=== PATIENT | male | born 1995 | race African-American/Black ===

== ENCOUNTER 2023-09-23 12:46 | Inpatient (IN) | payer OTHER ==
[~2023-09-23] VITALS: Ht 177.8 cm; Wt 109.1 kg
[~2023-09-23 12:46] MED LIST: ARIP20TA21 PO; CHOL500013 PO; FOLI-130 PO; HYDR500 PO; PREG75 PO; PSEU-221 PO; VORT20TA PO
[2023-09-23 15:25] LABS: BASOPHILS % (AUTO) 0.9 % (0.0-2.0); EOSINOPHILS % (AUTO) 0.8 % (1.0-6.0); HEMOGLOBIN 10.6 g/dL (13.5-17.5); LYMPHOCYTES # (AUTO) 2.7 K/uL (1.0-4.8); LYMPHOCYTES % (AUTO) 34.3 % (22.0-44.0); MEAN CORPUSCULAR HGB CONC 34.2 G/dL (31.0-37.0); MEAN CORPUSCULAR VOLUME 111 fL (80-100); MONOCYTES # (AUTO) 0.6 K/uL (0.1-1.0); NEUTROPHILS # (AUTO) 4.5 K/uL (1.8-7.7); PLATELET COUNT (AUTO) 466 K/uL (150-450); RED CELL DISTRIBUTION WIDTH 16.8 % (11.5-14.5); RETICULOCYTE % (AUTO) 4.3 % (0.5-2.3); WHITE BLOOD COUNT (AUTO) 7.9 K/uL (4.5-11.0)
[2023-09-23 15:28] LABS: APPEARANCE,URINE CLEAR (CLEAR); BILIRUBIN,URINE NEGATIVE (NEGATIVE); COLOR,URINE COLORLESS (YELLOW); GLUCOSE, URINE (UA) NEGATIVE (NEGATIVE); KETONES,URINE NEGATIVE (NEGATIVE); LEUKOCYTE ESTERASE ,URINE NEGATIVE (NEGATIVE); NITRATE,URINE NEGATIVE (NEGATIVE); OCCULT BLOOD,URINE NEGATIVE (NEGATIVE); PH,URINE 6.5 (5.0-8.0); PROTEIN,URINE NEGATIVE (NEGATIVE); SPECIFIC GRAVITIY, URINE 1.012 (1.003-1.030); UROBILINOGEN,URINE <=1.0 mg/dL (<=1.0)
[2023-09-23] MEDS ORDERED: ONDANSETRON HCL 4 MG/2 ML VIAL IVP PRN (15:30)
[2023-09-23] MEDS ORDERED: ACETAMINOPHEN 325 MG TABLET PO PRN (15:30)
[2023-09-23 15:33] LABS: ANION GAP 6 mmol/L (8-16); CALCIUM, TOTAL 9.1 mg/dL (8.8-10.5); CARBON DIOXIDE 29 mmol/L (22-29); CHLORIDE 106 mmol/L (98-107); CREATININE 0.77 mg/dL (0.60-1.30); GLOMERULAR FILTR. RATE CALC > 60 mL/min (>60); GLUCOSE,RANDOM 76 mg/dL (70-110); POTASSIUM 3.7 mmol/L (3.5-5.1); SODIUM SERUM 141 mmol/L (136-145); UREA NITROGEN, BLOOD 10 mg/dL (7-18)
[2023-09-23 15:39] LABS: ALANINE AMINOTRANSFERASE 33 U/L (12-78); ALBUMIN 3.8 g/dL (3.4-5.0); ALKALINE PHOSPHATASE 54 U/L (46-116); ASPARTATE AMINOTRANSFERASE 41 U/L (15-37); BILIRUBIN,TOTAL 0.9 mg/dL (0.1-1.0); TOTAL PROTEIN, SERUM 7.7 g/dL (6.4-8.2)
[2023-09-23] MEDS: HEPARIN SODIUM,PORCINE 5,000 UNITS/ML VIAL SQ SCH (16:40)
[2023-09-23] MEDS: HYDROmorphone HCL 2 MG/ML SYRINGE IVP ONE (16:46)
[2023-09-23] MEDS: ONDANSETRON HCL 4 MG/2 ML VIAL IVP ONE (16:46)
[2023-09-23] MEDS: SODIUM CHLORIDE 0.9% 2,000 ML IV ONE (16:48)
[2023-09-23 17:48] VITALS: BP 128/74; PULSE 72; RESP 18; TEMP 98.2
[2023-09-23] MEDS: MORPHINE SULFATE 2 MG/ML SYRINGE IVP PRN (18:21)
[2023-09-23 19:26] VITALS: BP 116/72; PULSE 62; RESP 20; TEMP 97.7
[2023-09-23] MEDS: SODIUM CHLORIDE 0.9% 1,000 ML IV SCH (20:22)
[2023-09-23] MEDS: DOCUSATE SODIUM 100 MG CAPSULE PO SCH (20:22)
[2023-09-23] MEDS: OxyCODONE HCL/ACETAMINOPHEN 5-325 MG TABLET PO PRN (20:22)
[2023-09-24 04:05] VITALS: BP 107/49; PULSE 55; RESP 20; TEMP 97.4
[2023-09-24] MEDS: FAMOTIDINE 20 MG TABLET PO SCH (07:56)
[2023-09-24] MEDS: FOLIC ACID 1 MG TABLET PO SCH (07:56)
[2023-09-24 08:12] VITALS: BP 96/43; PULSE 60; RESP 18; TEMP 97.5
[2023-09-24 11:51] VITALS: BP 107/62; PULSE 66; RESP 16; TEMP 98.6
[2023-09-24] MEDS: HYDROmorphone HCL 2 MG/ML SYRINGE IVP PRN ×2 (12:17→16:21)
[2023-09-24 19:42] VITALS: BP 110/51; PULSE 57; RESP 18; TEMP 97.5
[2023-09-25] VITALS (8 sets, daily range): BP systolic 106–121; BP diastolic 53–89; PULSE 48–111; RESP 17–19; TEMP 97.6–98.4
[2023-09-25] MEDS: HYDROmorphone HCL 2 MG TABLET PO PRN (13:16)
[2023-09-25] MEDS: HEPARIN SODIUM,PORCINE 100 UNITS/ML 5 ML VIAL IVP ONE (16:45)
[2023-09-25] MEDS: HYDROmorphone HCL 2 MG/ML SYRINGE IVP PRN (18:50)
[2023-09-26 04:13] VITALS: BP 110/73; PULSE 57; RESP 17; TEMP 98.4
[2023-09-26 08:07] VITALS: BP 97/48; PULSE 68; RESP 19; TEMP 98.1
[2023-09-26 08:08] VITALS: BP 120/68; PULSE 62; RESP 20; TEMP 97.8
[2023-09-26] MEDS: HYDROmorphone HCL 2 MG/ML SYRINGE IVP PRN (11:45)
[2023-09-26] MEDS: SODIUM CHLORIDE 0.9% 1,000 ML IV SCH (11:47)
[2023-09-26 15:53] VITALS: BP 117/63; PULSE 61; RESP 19
[2023-09-26 19:43] VITALS: BP 108/60; PULSE 60; RESP 18; TEMP 98.1
[2023-09-27 08:02] VITALS: BP 111/64; PULSE 61; RESP 18; TEMP 97.7
[2023-09-27 12:08] VITALS: BP 114/63; PULSE 68; RESP 18; TEMP 97.8
[2023-09-27 15:13] VITALS: BP 117/66; PULSE 68; RESP 18; TEMP 98.1
[2023-09-27] MEDS: HYDROmorphone HCL 2 MG/ML SYRINGE IVP PRN (15:17)
[2023-09-27 20:00] VITALS: BP 97/59; PULSE 60; RESP 18; TEMP 98.3
[2023-09-27 21:29] VITALS: BP 122/79; RESP 18
[2023-09-27] MEDS: ZOLPIDEM TARTRATE 5 MG TABLET PO PRN (22:15)
[2023-09-28] VITALS (8 sets, daily range): BP systolic 111–127; BP diastolic 47–77; PULSE 55–62; RESP 18–20; TEMP 97.6–98.5
[2023-09-28] MEDS: PREGABALIN 75 MG CAPSULE PO SCH (16:00)
[2023-09-28] MEDS: HYDROXYUREA 500 MG CAPSULE PO SCH (20:16)
[2023-09-28] MEDS: PSEUDOEPHEDRINE HCL 60 MG TABLET PO SCH (20:16)
[2023-09-29 03:58] VITALS: BP 108/74; PULSE 53; RESP 17; TEMP 98.3
[2023-09-29 07:23] VITALS: BP 122/78; PULSE 53; RESP 17; TEMP 97.5
[2023-09-29] MEDS: ARIPiprazole 10 MG TABLET PO SCH (07:56)
[2023-09-29] MEDS: CHOLECALCIFEROL (VIT D3) 5,000 [125 MCG] UNITS CAPSULE PO SCH (07:57)
[2023-09-29] MEDS ORDERED: [UNRECOGNIZED DRUG - OTHER] PO SCH (09:00)
[2023-09-29 16:27] VITALS: BP 122/47; PULSE 46; RESP 18; TEMP 98.3
[2023-09-29 17:02] VITALS: BP 112/56; PULSE 58; RESP 20
[2023-09-29 19:52] VITALS: BP 113/45; PULSE 56; RESP 20; TEMP 98.1
[2023-09-29 23:21] VITALS: BP 118/52; PULSE 58; RESP 18; TEMP 98.1
[2023-09-30 03:43] VITALS: BP 117/67; PULSE 60; RESP 18; TEMP 97.1
[2023-09-30 08:23] VITALS: BP 109/73; PULSE 68; RESP 18; TEMP 98.1
[2023-09-30 19:36] VITALS: BP 134/51; PULSE 57; RESP 19; TEMP 98.5
[2023-09-30 23:46] VITALS: BP 120/69; PULSE 53; RESP 18; TEMP 97.9
[2023-10-01 03:22] VITALS: BP 124/47; PULSE 50; RESP 18; TEMP 97.5
[2023-10-01 08:40] VITALS: BP 110/58; PULSE 46; RESP 2; RESP 20; TEMP 97.9
[2023-10-01 19:32] VITALS: BP 118/69; PULSE 69; RESP 20; TEMP 98.4
[2023-10-02 04:43] VITALS: BP 117/67; PULSE 70; RESP 20; TEMP 97.8
[2023-10-02 08:47] VITALS: BP 100/58; PULSE 56; RESP 18; TEMP 98.4
[2023-10-02 09:50] VITALS: BP 133/59; PULSE 60; RESP 16
[2023-10-02 16:47] VITALS: BP 118/37; PULSE 45; RESP 16; TEMP 97.5
[2023-10-02 20:05] VITALS: BP 125/71; PULSE 59; RESP 18; TEMP 98
[2023-10-03 05:41] VITALS: BP 124/68; PULSE 62; RESP 18; TEMP 98.2
[2023-10-03 08:00] VITALS: BP 120/61; PULSE 63; RESP 18; TEMP 98.1
[2023-10-03] MEDS: MAGNESIUM HYDROXIDE SUSPENSION 30 ML UDCUP PO PRN (15:53)
[2023-10-03 20:16] VITALS: BP 118/59; PULSE 58; RESP 19; TEMP 98
[2023-10-03 20:44] VITALS: BP 127/78; PULSE 64; RESP 18
[2023-10-04 04:40] VITALS: BP 127/64; PULSE 77; RESP 18; TEMP 98.1
[2023-10-04 08:33] VITALS: BP 116/58; PULSE 58; RESP 18; TEMP 97.8
[2023-10-04 19:32] VITALS: BP 118/60; PULSE 61; RESP 20; TEMP 98.3
[2023-10-05 04:36] VITALS: BP 122/63; PULSE 61; RESP 20; TEMP 97.9
[2023-10-05 08:10] VITALS: BP 130/62; PULSE 52; RESP 20; TEMP 98.1
[2023-10-05 19:20] VITALS: BP 114/51; PULSE 63; RESP 19; TEMP 98.1
[2023-10-05] MEDS: HYDROmorphone HCL 2 MG TABLET PO PRN (19:24)
[2023-10-05] MEDS ORDERED: HYDROmorphone HCL 2 MG/ML SYRINGE IVP PRN (21:15)
[2023-10-06 04:24] VITALS: BP 109/55; PULSE 64; RESP 18; TEMP 98.2
[2023-10-06 12:52] VITALS: BP 116/62; PULSE 81; RESP 19
[2023-10-06] MEDS: HYDROmorphone HCL 2 MG/ML SYRINGE IVP PRN (14:35)
[2023-10-06 19:50] VITALS: BP 110/60; PULSE 77; RESP 18; TEMP 98.3
[2023-10-07 04:20] VITALS: BP 101/54; PULSE 60; RESP 18; TEMP 98.3
[2023-10-07 08:06] VITALS: BP 103/58; PULSE 55; RESP 20; TEMP 97.9
== END 2023-10-07 18:15 | DRG 729 ==
LOC: EMS 12:47 → EDH 15:27 → 6S 17:12
PROVIDERS: ADMIT Internal Medicine; ATTEND Internal Medicine
PROC: 05HC33Z Insertion of Infusion Device into Left Basilic Vein, Percutaneous Approach (ICD-10-PCS; principal; 2023-09-27)
PROC: B54NZZA Ultrasonography of Left Upper Extremity Veins, Guidance (ICD-10-PCS; 2023-09-27)
DX: N48.30 Priapism, unspecified (principal); D57.00 Hb-SS disease with crisis, unspecified; F11.20 Opioid dependence, uncomplicated; E66.9 Obesity, unspecified; F32.A Depression, unspecified; Z68.34 Body mass index [BMI] 34.0-34.9, adult; F25.9 Schizoaffective disorder, unspecified; Z88.8 Allergy status to other drugs, medicaments and biological substances; Z76.5 Malingerer [conscious simulation]; Z79.899 Other long term (current) drug therapy
CPT/HCPCS: 36245; 36569; 76937; 80048; 80076; 81003; 85025; 85045; 99285; J1170; J1642; J1644; J2270; J2405; J7030

== ENCOUNTER 2024-01-07 15:33 | Inpatient (IN) | payer OTHER ==
[~2024-01-07] VITALS: Ht 177.8 cm; Wt 111.4 kg
[~2024-01-07 15:33] MED LIST changes: -ARIP20TA21 PO; +ARIP20TA63 PO
[2024-01-07] MEDS ORDERED: BISA-151 PO (18:25)
[2024-01-07] MEDS ORDERED: FINA-27 PO (18:25)
[2024-01-07] MEDS ORDERED: BICA50TA47 PO (18:26)
[2024-01-07] MEDS ORDERED: TADA20TA31 PO (18:26)
[2024-01-07] MEDS ORDERED: ACETAMINOPHEN 325 MG TABLET PO PRN (20:45)
[2024-01-07] MEDS ORDERED: BISACODYL 10 MG RECTAL RECTAL SUPPOSITORY PR PRN (20:45)
[2024-01-07] MEDS ORDERED: ZOLPIDEM TARTRATE 5 MG TABLET PO PRN (20:45)
[2024-01-07] MEDS ORDERED: MAGNESIUM HYDROXIDE SUSPENSION 30 ML UDCUP PO PRN (20:45)
[2024-01-07] MEDS ORDERED: ONDANSETRON HCL 4 MG/2 ML VIAL IVP PRN (20:45)
[2024-01-07] MEDS: SODIUM CHLORIDE 0.9% 1,000 ML IV ONE ×3 (21:07→21:36)
[2024-01-07 21:09] LABS: BASOPHILS % (AUTO) 1.2 % (0.0-2.0); EOSINOPHILS % (AUTO) 1.5 % (1.0-6.0); HEMATOCRIT 35.6 % (41-53); HEMOGLOBIN 12.1 g/dL (13.5-17.5); LYMPHOCYTES # (AUTO) 2.9 K/uL (1.0-4.8); LYMPHOCYTES % (AUTO) 27.7 % (22.0-44.0); MEAN CORPUSCULAR HEMOGLOBIN 31.6 pg (26.0-34.0); MEAN CORPUSCULAR HGB CONC 34.1 G/dL (31.0-37.0); MEAN CORPUSCULAR VOLUME 93 fL (80-100); MONOCYTES # (AUTO) 0.9 K/uL (0.1-1.0); MONOCYTES % (AUTO) 8.2 % (2.0-9.0); NEUTROPHILS # (AUTO) 6.4 K/uL (1.8-7.7); NEUTROPHILS % (AUTO) 61.4 % (40.0-70.0); PLATELET COUNT (AUTO) 351 K/uL (150-450); RED BLOOD CELL COUNT(AUTO) 3.84 MIL/uL (4.50-5.90); RED CELL DISTRIBUTION WIDTH 15.8 % (11.5-14.5); RETICULOCYTE % (AUTO) 3.3 % (0.5-2.3); WHITE BLOOD COUNT (AUTO) 10.5 K/uL (4.5-11.0)
[2024-01-07] MEDS: ONDANSETRON HCL 4 MG/2 ML VIAL IVP ONE (21:13)
[2024-01-07] MEDS: HYDROmorphone HCL 2 MG/ML SYRINGE IVP ONE (21:13)
[2024-01-07] MEDS: LORazepam 2 MG/ML VIAL IVP ONE (21:13)
[2024-01-07 21:19] LABS: ANION GAP 9 mmol/L (8-16); CALCIUM, TOTAL 8.9 mg/dL (8.8-10.5); CARBON DIOXIDE 25 mmol/L (22-29); CHLORIDE 105 mmol/L (98-107); CREATININE 0.78 mg/dL (0.60-1.30); GLOMERULAR FILTR. RATE CALC > 60 mL/min (>60); GLUCOSE,RANDOM 88 mg/dL (70-110); POTASSIUM 3.7 mmol/L (3.5-5.1); SODIUM SERUM 139 mmol/L (136-145); UREA NITROGEN, BLOOD 7 mg/dL (7-18)
[2024-01-07 21:25] LABS: LACTATE DEHYDROGENASE 240 U/L (85-227); LIPASE 22 U/L (16-77)
[2024-01-07 21:26] LABS: LACTIC ACID 1.1 mmol/L (0.4-2.0)
[2024-01-07] MEDS: HYDROXYUREA 500 MG CAPSULE PO SCH (21:35)
[2024-01-07] MEDS: FOLIC ACID 1 MG TABLET PO SCH (21:35)
[2024-01-07] MEDS: DOCUSATE SODIUM 100 MG CAPSULE PO SCH (21:36)
[2024-01-07] MEDS: HEPARIN SODIUM,PORCINE 5,000 UNITS/ML VIAL SQ SCH (23:36)
[2024-01-08] MEDS: MORPHINE SULFATE 2 MG/ML SYRINGE IVP PRN (01:47)
[2024-01-08 05:00] VITALS: BP 124/72; PULSE 63; RESP 18; TEMP 97.6; O2SAT 99
[2024-01-08 08:12] VITALS: BP 113/59; PULSE 58; RESP 19; TEMP 97.7; O2SAT 100
[2024-01-08] MEDS: FINASTERIDE 5 MG TABLET PO SCH (08:44)
[2024-01-08] MEDS: PANTOPRAZOLE SODIUM 40 MG DR TABLET PO SCH (08:44)
[2024-01-08] MEDS: PSEUDOEPHEDRINE HCL 60 MG TABLET PO SCH (08:44)
[2024-01-08] MEDS: BICALUTAMIDE 50 MG TABLET PO SCH (08:44)
[2024-01-08] MEDS: PREGABALIN 75 MG CAPSULE PO SCH (08:44)
[2024-01-08] MEDS: CHOLECALCIFEROL (VIT D3) 5,000 [125 MCG] UNITS CAPSULE PO SCH (08:44)
[2024-01-08] MEDS ORDERED: HYDROmorphone HCL 2 MG TABLET PO PRN (15:15)
[2024-01-08] MEDS: SODIUM CHLORIDE 0.9% 1,000 ML IV SCH (15:48)
[2024-01-08 16:10] VITALS: BP 125/75; PULSE 62; RESP 18; TEMP 98.1; O2SAT 100
[2024-01-08 19:53] VITALS: BP 121/75; PULSE 61; RESP 18; TEMP 97.8; O2SAT 98
[2024-01-09 05:03] VITALS: BP 109/67; PULSE 64; RESP 18; TEMP 97.6; O2SAT 98
[2024-01-09 08:07] VITALS: BP 120/75; PULSE 64; RESP 18; TEMP 98.4; O2SAT 100
[2024-01-09 09:01] VITALS: BP 122/54; PULSE 66; RESP 18; TEMP 97.8; O2SAT 98
[2024-01-09] MEDS ORDERED: TADA5TAB13 PO (12:31)
[2024-01-09] MEDS ORDERED: INFLUENZA VIRUS VACCINE TVS (6MO+) 2024-25/PF 45 MCG/0.5 ML SYRINGE IM. ONE (12:45)
[2024-01-09] MEDS: HYDROCODONE/ACETAMINOPHEN 5-325 MG TABLET PO PRN (12:47)
[2024-01-09] MEDS: HYDROmorphone HCL 2 MG/ML SYRINGE IVP PRN (14:10)
[2024-01-09 17:15] VITALS: BP 124/62; PULSE 68; RESP 18; TEMP 98.2; O2SAT 97
[2024-01-09 21:50] VITALS: BP 117/58; PULSE 69; RESP 18; TEMP 98.6; O2SAT 100
[2024-01-10 02:29] VITALS: BP 119/67; PULSE 74; RESP 18; TEMP 98.4; O2SAT 98
[2024-01-10 07:04] VITALS: BP 119/73; PULSE 66; RESP 18; O2SAT 100
[2024-01-10 08:17] VITALS: BP 145/79; PULSE 71; RESP 18; TEMP 98.1; O2SAT 98
[2024-01-10 08:20] LABS: BASOPHILS % (AUTO) 0.5 % (0.0-2.0); EOSINOPHILS % (AUTO) 2.3 % (1.0-6.0); HEMATOCRIT 36.1 % (41-53); HEMOGLOBIN 12.4 g/dL (13.5-17.5); LYMPHOCYTES # (AUTO) 3.7 K/uL (1.0-4.8); LYMPHOCYTES % (AUTO) 34.3 % (22.0-44.0); MEAN CORPUSCULAR HEMOGLOBIN 31.7 pg (26.0-34.0); MEAN CORPUSCULAR HGB CONC 34.2 G/dL (31.0-37.0); MEAN CORPUSCULAR VOLUME 93 fL (80-100); MONOCYTES # (AUTO) 0.6 K/uL (0.1-1.0); MONOCYTES % (AUTO) 5.2 % (2.0-9.0); NEUTROPHILS # (AUTO) 6.2 K/uL (1.8-7.7); NEUTROPHILS % (AUTO) 57.7 % (40.0-70.0); PLATELET COUNT (AUTO) 361 K/uL (150-450); RED CELL DISTRIBUTION WIDTH 16.1 % (11.5-14.5); WHITE BLOOD COUNT (AUTO) 10.7 K/uL (4.5-11.0)
[2024-01-10 08:28] LABS: ANION GAP 3 mmol/L (8-16); CALCIUM, TOTAL 8.8 mg/dL (8.8-10.5); CARBON DIOXIDE 30 mmol/L (22-29); CHLORIDE 105 mmol/L (98-107); CREATININE 0.79 mg/dL (0.60-1.30); GLOMERULAR FILTR. RATE CALC > 60 mL/min (>60); GLUCOSE,RANDOM 101 mg/dL (70-110); SODIUM SERUM 138 mmol/L (136-145); UREA NITROGEN, BLOOD 8 mg/dL (7-18)
[2024-01-10 11:00] LABS: APPEARANCE,URINE CLEAR (CLEAR); BILIRUBIN,URINE NEGATIVE (NEGATIVE); COLOR,URINE COLORLESS (YELLOW); GLUCOSE, URINE (UA) NEGATIVE (NEGATIVE); KETONES,URINE NEGATIVE (NEGATIVE); LEUKOCYTE ESTERASE ,URINE NEGATIVE (NEGATIVE); NITRATE,URINE NEGATIVE (NEGATIVE); OCCULT BLOOD,URINE NEGATIVE (NEGATIVE); PROTEIN,URINE NEGATIVE (NEGATIVE); SPECIFIC GRAVITIY, URINE 1.009 (1.003-1.030); UROBILINOGEN,URINE <=1.0 mg/dL (<=1.0)
[2024-01-10 11:11] LABS: ALCOHOL, URINE DRUG SCREEN NEGATIVE (NEGATIVE); AMPHET/METH SCREEN,URINE NEGATIVE (NEGATIVE); BARBITURATE SCREEN, URINE NEGATIVE (NEGATIVE); BENZODIAZEPINES SCREEN,URINE NEGATIVE (NEGATIVE); CANNABINOID SCREEN,URINE NEGATIVE (NEGATIVE); COCAINE SCREEN,URINE NEGATIVE (NEGATIVE); METHADONE SCREEN, URINE NEGATIVE (NEGATIVE); OPIATE SCREEN,URINE POSITIVE (NEGATIVE); PHENCYCLIDINE SCREEN,URINE NEGATIVE (NEGATIVE)
[2024-01-10 11:56] LABS: RETICULOCYTE % (AUTO) 4.1 % (0.5-2.3)
[2024-01-10 12:01] LABS: BACTERIA,URINE None Seen /HPF (None Seen); RBC,URINE None Seen /HPF (0-2); SQUAMOUS EPITHELIAL CELL,UR None Seen /LPF (None Seen); WBC,URINE None Seen /HPF (0-5)
[2024-01-10] MEDS: HEPARIN SODIUM,PORCINE 100 UNITS/ML 5 ML VIAL IVP ONE (15:35)
== END 2024-01-10 20:32 | disposition left against medical advice (07) | DRG 812 ==
LOC: EMS 15:33 → EDH 01-08 03:52 → 6S 01-08 04:55
PROVIDERS: ADMIT Internal Medicine; ATTEND Internal Medicine
DX: D57.00 Hb-SS disease with crisis, unspecified (principal); F84.0 Autistic disorder; F25.9 Schizoaffective disorder, unspecified; E55.9 Vitamin D deficiency, unspecified; E86.0 Dehydration; Z88.8 Allergy status to other drugs, medicaments and biological substances; Z79.899 Other long term (current) drug therapy; Z53.29 Procedure and treatment not carried out because of patient's decision for other reasons
CPT/HCPCS: 80048; 80307; 81001; 83605; 83615; 83690; 85025; 85045; 99285; J1171; J1642; J1644; J2060; J2270; J2405; J7030